=== PATIENT | male | born 1970 | race Caucasian/White ===

== ENCOUNTER 2023-12-21 13:17 | Emergency (ER) | payer MEDICAID ==
[~2023-12-21] VITALS: Ht 188 cm; Wt 80.0 kg
[2023-12-21 13:20] VITALS: O2SAT 97
[2023-12-21] MEDS: SODIUM CHLORIDE 0.9% 1,000 ML IV ONE (14:00)
[2023-12-21 14:52] LABS: HEMATOCRIT. 37.9 % (42.0-52.0); HEMOGLOBIN. 12.8 g/dL (14.0-18.0); MEAN CORPUSCULAR HEMOGLOBIN 29.7 pg (28.0-32.0); MEAN CORPUSCULAR HGB CONC 33.8 g/dL (31.0-37.0); MEAN PLATELET VOLUME 7.5 fl (7.4-10.4); PLATELET 323 x1000/uL (130-400); RED CELL DISTRIBUTION WIDTH 14.8 % (11.6-14.6); WHITE BLOOD COUNT 10.9 x1000/uL (4.5-11.0)
[2023-12-21 15:01] LABS: CHLORIDE 106 mEq/L (98-107); POTASSIUM 3.6 mEq/L (3.5-5.1); SODIUM 138 mEq/L (136-145)
[2023-12-21 15:02] LABS: CARBON DIOXIDE 26 mEq/L (21-32)
[2023-12-21 15:07] LABS: CREATININE 0.8 mg/dL (0.6-1.3); GLUCOSE 135 mg/dL (70-105)
[2023-12-21 15:08] LABS: TROPONIN I HIGH SENSITIVITY 24 ng/L (3.0-53); UREA NITROGEN BLOOD 6 mg/dL (9-23)
[2023-12-21 15:09] LABS: ALANINE AMINOTRANSFERASE 11 IU/L (10-49); ALBUMIN 3.9 g/dL (3.2-4.8); ASPARTATE AMINOTRANSFERASE 16 IU/L (<34)
[2023-12-21 15:10] LABS: BILIRUBIN DIRECT 0.2 mg/dL (<=3.0); BILIRUBIN TOTAL 0.4 mg/dL (0.1-1.0); ETHANOL BLOOD < 10 mg/dL (<10); PROTEIN TOTAL 6.8 g/dL (6.0-8.3)
[2023-12-21 15:23] LABS: DIFFERENTIAL COMMENT 1
[2023-12-21 16:27] LABS: CLARITY URINE CLEAR (CLEAR); COLOR URINE YELLOW (YELLOW); GLUCOSE URINE 2+ (NEGATIVE); KETONES URINE NEGATIVE (NEGATIVE); LEUKOCYTE ESTERASE URINE NEGATIVE (NEGATIVE); NITRITE URINE NEGATIVE (NEGATIVE); OCCULT BLOOD URINE NEGATIVE (NEGATIVE); PROTEIN URINE TRACE (NEGATIVE); SPECIFIC GRAVITY URINE 1.017 (1.005-1.030)
[2023-12-21 16:40] LABS: *AMPHETAMINES SCREEN URINE PRESUMPTIVE POSITIVE (NEGATIVE); *BARBITURATES SCREEN URINE NEGATIVE (NEGATIVE); *BENZODIAZEPINES SCREEN URINE PRESUMPTIVE POSITIVE (NEGATIVE); *COCAINE SCREEN URINE NEGATIVE (NEGATIVE)
[2023-12-21 16:41] LABS: CANNABINOID URINE SCREEN PRESUMPTIVE POSITIVE (NEGATIVE); ECSTASY MDMA SCREEN URINE NEGATIVE (NEGATIVE); METHADONE URINE SCREEN NEGATIVE (NEGATIVE); OPIATES URINE SCREEN NEGATIVE (NEGATIVE); PHENCYCLIDINE URINE SCREEN NEGATIVE (NEGATIVE)
[2023-12-21 16:59] LABS: PLATELET ESTIMATE NORMAL
[2023-12-21 17:18] LABS: BACTERIA URINE TRACE; RBC URINE 0-2 /hpf (0-2); SQUAMOUS EPITHELIAL CELL URINE FEW /lpf (RARE/1+)
[2023-12-21 17:36] VITALS: BP 116/69; PULSE 99; RESP 18; TEMP 98.9
== END 2023-12-21 17:41 | disposition left against medical advice (07) ==
LOC: ER 13:17
DX: R56.9 Unspecified convulsions (principal)
CPT/HCPCS: 80076; 80305; 80048; 81003; 80320; 82962; 83880; 85025; 84484; 36415; 93005; 96360; 96361; 99284; J7030; G0480

== ENCOUNTER 2023-12-21 18:49 | Emergency (ER) | payer MEDICAID ==
[~2023-12-21] VITALS: Ht 172.7 cm; Wt 59.0 kg
[2023-12-21] MEDS: DIPHENHYDRAMINE 50MG/ML VIAL IM STA (19:35)
[2023-12-21] MEDS: HALOPERIDOL LACTATE 5MG/ML VIAL IM ONE (19:45)
[2023-12-21 21:28] LABS: BASOPHILS % 0.1 % (0.0-2.0); HEMATOCRIT. 36.2 % (42.0-52.0); HEMOGLOBIN. 12.2 g/dL (14.0-18.0); LYMPHOCYTES % 6.7 % (20.0-50.0); MEAN CORPUSCULAR HEMOGLOBIN 29.8 pg (28.0-32.0); MEAN CORPUSCULAR HGB CONC 33.7 g/dL (31.0-37.0); MEAN CORPUSCULAR VOLUME 88.4 fL (80.0-94.0); MEAN PLATELET VOLUME 7.6 fl (7.4-10.4); MONOCYTES % 3.3 % (2.0-8.0); NEUTROPHILS % 89.9 % (40.0-76.0); PLATELET 316 x1000/uL (130-400); RED CELL DISTRIBUTION WIDTH 14.8 % (11.6-14.6); WHITE BLOOD COUNT 12.1 x1000/uL (4.5-11.0)
[2023-12-21] MEDS: MIDAZOLAM HCL 2 MG/2 ML VIAL IM ONE (21:36)
[2023-12-21 21:39] LABS: CHLORIDE 104 mEq/L (98-107); SODIUM 138 mEq/L (136-145)
[2023-12-21 21:40] LABS: CARBON DIOXIDE 27 mEq/L (21-32)
[2023-12-21 21:43] LABS: DIFFERENTIAL COMMENT 1
[2023-12-21 21:46] LABS: CREATININE 0.8 mg/dL (0.6-1.3); GLUCOSE 131 mg/dL (70-105); UREA NITROGEN BLOOD 8 mg/dL (9-23)
[2023-12-21 21:47] LABS: ACETAMINOPHEN < 2 ug/mL (10-30)
[2023-12-21 21:54] LABS: ETHANOL BLOOD < 10 mg/dL (<10)
[2023-12-21 23:45] VITALS: O2SAT 98
[2023-12-22 10:42] VITALS: BP 139/99; PULSE 99; RESP 17; TEMP 97.7
== END 2023-12-22 11:39 | disposition home or self-care (01) ==
LOC: ER 18:49
DX: R45.1 Restlessness and agitation (principal); F41.9 Anxiety disorder, unspecified
CPT/HCPCS: 80048; 80307; 80329; 80320; 85025; 36415; 96372; 99291; J1200; J1630; J2250; G0480